=== PATIENT | male | born 2000 | race American Indian/Alaskan Native ===

== ENCOUNTER 2020-08-13 01:36 | Emergency (ER) | payer OTHER ==
[2020-08-13 03:35] VITALS: BP 131/72
--- NOTE | 2020-08-13 04:29 | XRay Report ---
EXAMINATION: Cervical spine radiograph series, 3 views, 08/13/2020 CLINICAL INFORMATION: Neck pain. No history of trauma is given COMPARISON: None. FINDINGS: There is normal alignment of the cervical vertebral bodies. Vertebral body height and inter vertebral disc spaces are well maintained. No significant degenerative changes are noted. There is no evidence of prevertebral soft tissue swelling. IMPRESSION: 1. No radiographic evidence of acute bony abnormality of the cervical spine. Signer Name: Anusha Guillen MD Signed: 08/13/2020 4:24 AM Workstation Name: [id number]
--- NOTE | 2020-08-13 04:29 | XRay Report ---
EXAMINATION: Lumbar spine radiograph series, 2 views, 08/13/2020 CLINICAL INFORMATION: Back pain. No history of trauma is given. COMPARISON: None. FINDINGS: There is normal alignment of the lumbar vertebral bodies. Vertebral body height and interve rtebral disc spaces are well maintained. No significant degenerative changes are noted. IMPRESSION: 1. No radiographic evidence of acute bony abnormality of the lumbar spine. Signer Name: Anusha Guillen MD Signed: 08/13/2020 4:25 AM Workstation Name: [id number]
--- NOTE | 2020-08-13 04:30 | XRay Report ---
EXAMINATION: Right tibia/fibula, 2 views, 08/13/2020 CLINICAL INFORMATION: Right leg pain COMPARISON: None. FINDINGS: There is no evidence of acute fracture of the tibia or fibula. No focal soft tissue swellin g is identified. Signer Name: Anusha Guillen MD Signed: 08/13/2020 4:25 AM Workstation Name: [id number]
[2020-08-13] MEDS ORDERED: IBUPROFEN 600 MG TAB PO ONE (05:40)
[2020-08-13] MEDS ORDERED: ACETAMINOPHEN 500 MG TAB PO ONE (05:40)
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
== END 2020-08-13 06:25 | disposition home or self-care (01) ==
LOC: ED 01:36
DX: S80.11XA Contusion of right lower leg, initial encounter (principal); M54.40 Lumbago with sciatica, unspecified side; M62.830 Muscle spasm of back; J45.909 Unspecified asthma, uncomplicated; F17.200 Nicotine dependence, unspecified, uncomplicated; Z79.1 Long term (current) use of non-steroidal anti-inflammatories (NSAID); Z79.899 Other long term (current) drug therapy; V49.49XA Driver injured in collision with other motor vehicles in traffic accident, initial encounter; Y93.89 Activity, other specified; Y92.410 Unspecified street and highway as the place of occurrence of the external cause; Y99.8 Other external cause status
CPT/HCPCS: 72040; 72100

== ENCOUNTER 2021-10-20 13:46 | Emergency (ER) | payer OTHER ==
[2021-10-20 14:46] VITALS: BP 123/67
[2021-10-20] MEDS ORDERED: ACETAMINOPHEN 500 MG TAB PO STA (20:41)
[2021-10-20] MEDS ORDERED: predniSONE 20 MG TAB PO ONE (20:41)
[2021-10-20] MEDS ORDERED: IBUPROFEN 800 MG TAB PO STA (20:41)
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
== END 2021-10-21 00:08 | disposition home or self-care (01) ==
LOC: ED 13:46
DX: M54.9 Dorsalgia, unspecified (principal); J45.909 Unspecified asthma, uncomplicated; F17.200 Nicotine dependence, unspecified, uncomplicated; V89.2XXA Person injured in unspecified motor-vehicle accident, traffic, initial encounter; Y93.89 Activity, other specified; Y92.89 Other specified places as the place of occurrence of the external cause; Y99.8 Other external cause status
CPT/HCPCS: 72100; 99283